=== PATIENT | male | born 1955 | race Hispanic/Latino ===

== ENCOUNTER 2018-06-21 07:50 | Emergency (ER) | payer OTHER ==
[2018-06-21] MEDS ORDERED: Adacel (T-DAP) 0.5 ML VIAL ONE (08:06)
[2018-06-21] MEDS ORDERED: Silver Sulfadiazine 1% Cream 50 GM JAR ONE (08:06)
[2018-06-21] MEDS ORDERED: Ibuprofen 800 MG TAB ONE (08:06)
== END 2018-06-21 08:40 | disposition home or self-care (01) ==
LOC: BURERS 07:50
DX: T20.27XA Burn of second degree of neck, initial encounter (principal); X19.XXXA Contact with other heat and hot substances, initial encounter
CPT/HCPCS: 16020; 90471; 90715; G0390